=== PATIENT | male | born 1965 | race African-American/Black ===

== ENCOUNTER 2021-10-24 07:25 | Emergency (ER) | payer BC, SELFPAY ==
[2021-10-24 08:55] LABS: #Eosinphils 0.1 10x3/uL (0.0-0.5); #Monocytes 0.3 10x3/uL (0.0-1.1); #Neutrophils 2.3 10x3/uL (1.5-8.4); %Basophils 0.5 % (0.0-2.0); %Eosinophils 3.2 % (0.0-6.0); %Lymphocytes 26.3 % (18.0-47.0); %Monocytes 8.2 % (0.0-10.0); %Neutrophils 61.5 % (40.0-75.0); Mean Corpuscular HGB CONC 33.2 g/dL (32.0-36.0); Mean Corpuscular Hemoglobin 29.9 pg (27.0-33.0); Mean Corpuscular Volume 90.1 fl (81.2-95.1); Mean Platelet Volume 10.4 fl (7.4-10.4); Platelet Count 217 10x3/uL (150-450); RBC Distribution Width 12.1 % (11.5-14.5); Red Blood Cell (RBC) Count 4.35 10x6/uL (4.32-5.72); White Blood Cell (WBC) Count 3.8 10x3/uL (3.5-10.5)
[2021-10-24 09:12] LABS: ALT (SGPT) 11 U/L (8-55); AST (SGOT) 19 U/L (5-34); Albumin 3.9 g/dL (3.5-5.0); Alkaline Phosphatase 82 U/L (40-110); Anion Gap 17 mmol/L (10-20); BUN (Urea Nitrogen) 7 mg/dL (8.4-25.7); Bilirubin, Total 0.5 mg/dL (0.2-1.2); Calc. Creatinine Clearance 0 mL/min (70-130); Calcium 9.2 mg/dL (7.8-10.44); Carbon Dioxide 22 mmol/L (22-29); Chloride 106 mmol/L (98-107); Globulin 3.3 g/dL (2.4-3.5); Glucose 108 mg/dL (70-105); Lipase 22 U/L (8-78); Potassium 3.5 mmol/L (3.5-5.1); Protein, Total 7.2 g/dL (6.0-8.3); Sodium 141 mmol/L (136-145)
[2021-10-24] MEDS ORDERED: Iopamidol 300 61% 100 ML VIAL FS ONE (15:46)
== END 2021-10-24 09:49 | disposition home or self-care (01) ==
LOC: CSHERS 07:25
DX: K29.70 Gastritis, unspecified, without bleeding (principal); I10 Essential (primary) hypertension; E11.9 Type 2 diabetes mellitus without complications
CPT/HCPCS: 74177; 80053; 83690; 85025; Q9967

== ENCOUNTER 2022-05-02 11:45 | Emergency (ER) | payer OTHER, SELFPAY ==
[2022-05-02] MEDS ORDERED: Morphine 4 MG/ML VIAL ONE ×2 (12:40→16:44)
[2022-05-02] MEDS ORDERED: Lidocaine 1% (PF) 30 ML VIAL ONE (12:41)
[2022-05-02 13:08] LABS: ALT (SGPT) 8 U/L (8-55); AST (SGOT) 15 U/L (5-34); Albumin 4.1 g/dL (3.5-5.0); Alkaline Phosphatase 88 U/L (40-110); Anion Gap 17 mmol/L (10-20); BUN (Urea Nitrogen) 4 mg/dL (8.4-25.7); Bilirubin, Total 0.5 mg/dL (0.2-1.2); Calc. Creatinine Clearance 0 mL/min (70-130); Calcium 9.1 mg/dL (7.8-10.44); Carbon Dioxide 22 mmol/L (22-29); Chloride 102 mmol/L (98-107); Estimated GFR 102; Glucose 86 mg/dL (70-105); Potassium 3.4 mmol/L (3.5-5.1); Protein, Total 8.1 g/dL (6.0-8.3); Sodium 138 mmol/L (136-145)
[2022-05-02 13:18] LABS: #Eosinphils 0.2 10x3/uL (0.0-0.5); #Monocytes 0.6 10x3/uL (0.0-1.1); #Neutrophils 5.5 10x3/uL (1.5-8.4); %Basophils 0.3 % (0.0-2.0); %Eosinophils 2.2 % (0.0-6.0); %Lymphocytes 12.4 % (18.0-47.0); %Monocytes 8.6 % (0.0-10.0); %Neutrophils 76.1 % (40.0-75.0); Hemoglobin 11.7 g/dL (13.5-17.5); Mean Corpuscular HGB CONC 32.1 g/dL (32.0-36.0); Mean Corpuscular Hemoglobin 24.8 pg (27.0-33.0); Mean Corpuscular Volume 77.3 fl (81.2-95.1); Mean Platelet Volume 10.3 fl (7.4-10.4); Platelet Count 254 10x3/uL (150-450); RBC Distribution Width 15.4 % (11.5-14.5); Red Blood Cell (RBC) Count 4.72 10x6/uL (4.32-5.72); White Blood Cell (WBC) Count 7.3 10x3/uL (3.5-10.5)
[2022-05-02 14:00] LABS: Anisocytosis SLIGHT = 6-15 cells (100X) (0-5/hpf); Microcytosis SLIGHT = 6-15 cells (100X) (0-5/hpf); Ovalocytes SLIGHT = 2-5 cells (100X) (0-1/hpf)
[2022-05-02 14:01] LABS: Large Platelets SLIGHT; Platelet Clumps MODERATE; Platelet Morphology Comment Appears Adequate
[2022-05-02] MEDS ORDERED: Iopamidol 300 61% 100 ML VIAL FS ONE (16:16)
[2022-05-02] MEDS ORDERED: Ketorolac Tromethamine 30 MG/ML VIAL ONE (17:02)
== END 2022-05-02 17:25 | disposition home or self-care (01) ==
LOC: CSHERS 11:45
DX: K61.1 Rectal abscess (principal); K64.4 Residual hemorrhoidal skin tags; E11.9 Type 2 diabetes mellitus without complications; I10 Essential (primary) hypertension; Z79.84 Long term (current) use of oral hypoglycemic drugs; Z79.899 Other long term (current) drug therapy
CPT/HCPCS: 46040; 72193; 80053; 85025; 96374; 96376; J1885; J2001; J2270; Q9967